=== PATIENT | male | born 1980 | race Two or more races ===

== ENCOUNTER 2021-11-04 10:51 | Day surgery (SDC) | payer OTHER ==
[2021-11-04] MEDS ORDERED: ULTRAM50 MG PO (13:11)
[2021-11-04] MEDS ORDERED: MIRALAX17 GM PO (13:11)
[2021-11-04] MEDS ORDERED: TYLENOL ARTHRI650 MG PO (13:11)
[2021-11-04] MEDS ORDERED: NEURONTIN300 MG PO (13:11)
== END 2021-11-04 20:35 | disposition home or self-care (01) ==
LOC: CIR.AMB 10:51
PROVIDERS: ATTEND Surgery
DX: K43.6 Other and unspecified ventral hernia with obstruction, without gangrene (principal); K42.9 Umbilical hernia without obstruction or gangrene; Z88.6 Allergy status to analgesic agent; J45.909 Unspecified asthma, uncomplicated; E66.01 Morbid (severe) obesity due to excess calories; Z20.822 Contact with and (suspected) exposure to COVID-19